=== PATIENT | female | born 1990 | race Caucasian/White ===

== ENCOUNTER → 2017-08-10 | Outpatient (CLI) | payer OTHER ==
[2017-08-10 17:40] LABS: BASO % 0.2 % (0.0-1.0); EOS # 0.1 10^3/uL (0.0-0.50); EOS % 0.9 % (0.0-3.0); HEMATOCRIT 38.5 % (36.0-47.0); HEMOGLOBIN 12.9 g/dl (12.0-15.5); IMMATURE GRANULOCYTE % 0.2 % (0-3.0); LYMPH # 2.3 10^3/uL (1.5-6.5); LYMPH % 22.7 % (24.0-44.0); MEAN CORPUSCULAR HEMOGLOBIN 30.4 pg (27.0-33.0); MEAN CORPUSCULAR HGB CONC 33.5 g/dl (32.0-36.5); MEAN CORPUSCULAR VOLUME 90.6 fl (80.0-96.0); MONO # 0.6 10^3/uL (0.0-0.8); MONO % 5.6 % (0.0-5.0); NEUTROPHILS % 70.4 % (36.0-66.0); PLATELET COUNT, AUTOMATED 265 10^3/uL (150-450); RED BLOOD COUNT 4.25 10^6/uL (4.00-5.40); RED CELL DISTRIBUTION WIDTH 12.1 % (11.5-14.5); WHITE BLOOD COUNT 9.9 10^3/uL (4.0-10.0)
[2017-08-10 20:40] LABS: CHLAMYDIA DNA AMPLIFICATION NEGATIVE (NEGATIVE); GC DNA AMPLIFICATION NEGATIVE (NEGATIVE)
[2017-08-11 11:49] LABS: RUBELLA IgG QUALITATIVE IMMUNE (IMMUNE)
[2017-08-11 11:57] LABS: HBsAg Prenatal NEGATIVE (NEGATIVE)
[2017-08-11 12:19] LABS: HIV 1&2 SCREEN CENTAUR NEGATIVE (NEGATIVE)
== END ==
LOC: M SMT 13:10
DX: Z34.81 Encounter for supervision of other normal pregnancy, first trimester (principal); Z3A.08 8 weeks gestation of pregnancy

== ENCOUNTER → 2017-09-08 | Outpatient (CLI) | payer OTHER | LOC: M LAB 12:39 | DX: Z34.81 Encounter for supervision of other normal pregnancy, first trimester (principal) ==

== ENCOUNTER → 2017-10-20 | Outpatient (CLI) | payer OTHER | LOC: M RAD 16:39 | DX: Z34.82 Encounter for supervision of other normal pregnancy, second trimester (principal); Z36.89 Encounter for other specified antenatal screening; Z3A.18 18 weeks gestation of pregnancy | CPT/HCPCS: 76811 ==

== ENCOUNTER → 2017-11-16 | Outpatient (CLI) | payer OTHER | LOC: M RAD 07:43 | DX: Z34.82 Encounter for supervision of other normal pregnancy, second trimester (principal); Z36.89 Encounter for other specified antenatal screening; Z3A.21 21 weeks gestation of pregnancy | CPT/HCPCS: 76816 ==

== ENCOUNTER → 2017-12-19 | Outpatient (CLI) | payer OTHER ==
[2017-12-19 15:10] LABS: HEMATOCRIT 34.1 % (36.0-47.0); HEMOGLOBIN 11.4 g/dl (12.0-15.5); MEAN CORPUSCULAR HEMOGLOBIN 30.2 pg (27.0-33.0); MEAN CORPUSCULAR HGB CONC 33.4 g/dl (32.0-36.5); MEAN CORPUSCULAR VOLUME 90.2 fl (80.0-96.0); PLATELET COUNT, AUTOMATED 220 10^3/uL (150-450); RED BLOOD COUNT 3.78 10^6/uL (4.00-5.40); RED CELL DISTRIBUTION WIDTH 12.6 % (11.5-14.5); WHITE BLOOD COUNT 9.5 10^3/uL (4.0-10.0)
[2017-12-19 15:29] LABS: GLUCOSE CHALLENGE TEST 1 HOUR 110 MG/DL (LESS THAN 140)
== END ==
LOC: M LAB 13:34
DX: Z34.82 Encounter for supervision of other normal pregnancy, second trimester (principal)
CPT/HCPCS: 82950

== ENCOUNTER → 2018-03-02 | Outpatient (REF) | payer OTHER | LOC: M LAB REF 13:11 | DX: O34.211 Maternal care for low transverse scar from previous cesarean delivery (principal) ==

== ENCOUNTER 2018-03-22 00:36 | Inpatient (IN) | payer OTHER ==
[2018-03-22] MEDS ORDERED: LR 1,000 ML IV (01:14)
[2018-03-22] MEDS: LACTATED RINGER'S 1000 ML IV (01:14)
[2018-03-22] MEDS ORDERED: OXYTOCIN 30 UNITS IN 0.9% NaCl 500ML IV BAG (J2590) As Ordered (01:47)
[2018-03-22 01:53] LABS: HEMATOCRIT 38.3 % (36.0-47.0); HEMOGLOBIN 12.8 g/dl (12.0-15.5); MEAN CORPUSCULAR HGB CONC 33.4 g/dl (32.0-36.5); MEAN CORPUSCULAR VOLUME 89.7 fl (80.0-96.0); PLATELET COUNT, AUTOMATED 185 10^3/uL (150-450); RED BLOOD COUNT 4.27 10^6/uL (4.00-5.40); RED CELL DISTRIBUTION WIDTH 12.4 % (11.5-14.5); WHITE BLOOD COUNT 10.2 10^3/uL (4.0-10.0)
[2018-03-22] MEDS: OXYTOCIN DRIP 30 UNITS in APPROPRIATE DILUENT 1 EA IV (02:09)
[2018-03-22] MEDS ORDERED: METHYLERGONOVINE MALEATE 0.2 MG TAB PO (02:15)
[2018-03-22] MEDS ORDERED: DOCUSATE SODIUM 100 MG CAP PO (02:15)
[2018-03-22] MEDS ORDERED: DIBUCAINE 1% OINTMENT 30GM TOP (02:15)
[2018-03-22] MEDS ORDERED: RHOGAM 300 MCG (1500 IU) INJ (J2790) IM (02:15)
[2018-03-22] MEDS ORDERED: MEASLES,MUMPS,RUBELLA VACCINE INJ (MMR-II) (90707) SC (02:15)
[2018-03-22] MEDS: IBUPROFEN 800 MG TAB PO ×3 (02:36→19:53)
[2018-03-22] MEDS: ACETAMINOPHEN 500 MG TAB PO ×2 (06:42→15:49)
[2018-03-22] MEDS: PRENATAL VITAMINS CHEWABLE TABLET PO (10:09)
[2018-03-23] MEDS: ACETAMINOPHEN 500 MG TAB PO (00:07)
[2018-03-23] MEDS: IBUPROFEN 800 MG TAB PO (07:55)
[2018-03-23] MEDS: PRENATAL VITAMINS CHEWABLE TABLET PO (07:55)
== END 2018-03-23 17:04 | disposition home or self-care (01) | DRG 560 ==
LOC: M LDI 00:36 → M OBS 03:52
PROVIDERS: Advanced Practice Midwife
PROC: 10E0XZZ Delivery of Products of Conception, External Approach (ICD-10-PCS; principal; 2018-03-22)
DX: O34.211 Maternal care for low transverse scar from previous cesarean delivery (principal); O48.0 Post-term pregnancy; Z3A.40 40 weeks gestation of pregnancy; Z37.0 Single live birth

== ENCOUNTER 2020-03-13 11:46 | Emergency (ER) | payer OTHER ==
[~2020-03-13] VITALS: Ht 149.9 cm; Wt 63.2 kg
[~2020-03-13 11:46] MED LIST: COLA100C5 PO; IBUP-1022 PO; PRENTAB9 PO; RANI15TA PO; TYLE325T5 PO
[2020-03-13] MEDS ORDERED: EXCEDRIN MIGRAINE TABLET PO STA (12:34)
[2020-03-13] MEDS ORDERED: NS 1,000 ML IV ONE ×2 (12:45→13:30)
[2020-03-13] MEDS ORDERED: METOCLOPRAMIDE INJ 10MG/2ML VIAL (J2765 PER 1) IV ONE (12:45)
[2020-03-13 13:04] LABS: BASO % 0.2 % (0.0-1.0); EOS % 0.3 % (0.0-3.0); HEMATOCRIT 41.5 % (36.0-47.0); HEMOGLOBIN 13.4 g/dl (12.0-15.5); LYMPH # 1.1 10^3/uL (1.5-5.0); LYMPH % 12.2 % (24.0-44.0); MEAN CORPUSCULAR HEMOGLOBIN 29.9 pg (27.0-33.0); MEAN CORPUSCULAR HGB CONC 32.3 g/dl (32.0-36.5); MEAN CORPUSCULAR VOLUME 92.6 fl (80.0-96.0); MONO # 0.3 10^3/uL (0.0-0.8); MONO % 3.3 % (0.0-5.0); NEUTROPHILS # 7.8 10^3/uL (1.5-8.5); NEUTROPHILS % 83.6 % (36.0-66.0); PLATELET COUNT, AUTOMATED 267 10^3/uL (150-450); RED BLOOD COUNT 4.48 10^6/uL (4.00-5.40); WHITE BLOOD COUNT 9.3 10^3/uL (4.0-10.0)
[2020-03-13 13:17] LABS: BLOOD UREA NITROGEN 8 MG/DL (7-18); CALCIUM LEVEL 9.5 MG/DL (8.5-10.1); CARBON DIOXIDE LEVEL 25 MEQ/L (21-32); CHLORIDE LEVEL 109 MEQ/L (98-107); CREATININE FOR GFR 0.84 MG/DL (0.55-1.30); GLOMERULAR FILTRATION RATE > 60.0 (>60); GLUCOSE, FASTING 100 MG/DL (70-100); POTASSIUM SERUM 3.6 MEQ/L (3.5-5.1); SODIUM LEVEL 140 MEQ/L (136-145)
[2020-03-13 13:24] LABS: HCG, SERUM QUALITATIVE NEGATIVE (NEGATIVE)
[2020-03-13] MEDS ORDERED: ISOVUE-370 76% 100ML VIAL As Ordered ONE (15:12)
--- NOTE | 2020-03-13 15:35 | REP ---
INDICATION: severe headache; r/o aneurysm. COMPARISON: None. TECHNIQUE: CT contrast dose: 100 ml of intravenous Isovue 370. Axial contrast-enhanced images were obtained from the skull base to the vertex with coronal reformations using 100 cc Isovue 370 intravenous contrast material. Maximal intensity projection and multiplanar re-formation images along with 3-D rendered imaging of the arterial vasculature. FINDINGS: The norayc-je-[id number] and visualized vertebrobasilar system appear intact and normal. Vasculature to the bilateral hemispheres appear symmetric. No obvious arteriovenous malformation or aneurysm detected. Remainder of the examination appears essentially normal. Incidental near complete opacification of the right maxillary sinus suggesting chronic sinusitis and mucosal. IMPRESSION: Normal CT angiography of the head. No obvious arteriovenous malformation or aneurysm. Vasculature to the bilateral hemispheres and posterior fossa appear symmetric. <Electronically signed by Rd Tran > 03/13/20 2008
[2020-03-13] MEDS ORDERED: AMIT-253 PO (15:50)
[2020-03-13 15:56] VITALS: BP 115/74
== END 2020-03-13 16:08 | disposition home or self-care (01) ==
LOC: M ED 11:46
DX: G97.1 Other reaction to spinal and lumbar puncture (principal); G44.209 Tension-type headache, unspecified, not intractable
CPT/HCPCS: 70496; 80048; 84703; 85025; 96361; 96374; 99284; J2765; Q9967

== ENCOUNTER → 2020-04-09 | Outpatient (CLI) | payer OTHER ==
[~2020-04-09] MED LIST changes: +AMIT-253 PO
[2020-04-11 12:07] LABS: ANTINUCLEAR ANTIBODIES DIRECT Negative (Negative)
== END ==
LOC: M LAB 10:51
PROVIDERS: ATTEND Psychiatry & Neurology Neurology
DX: R51.9 Headache, unspecified (principal)

== ENCOUNTER → 2020-07-14 | Outpatient (REF) | payer OTHER | LOC: M LAB REF 16:19 | PROVIDERS: ATTEND Nurse Practitioner Adult Health | DX: R51.9 Headache, unspecified (principal); M54.81 Occipital neuralgia ==

== ENCOUNTER → 2021-08-25 | Outpatient (REF) | payer OTHER | LOC: M LAB REF 12:24 | PROVIDERS: ATTEND Physician Assistant | DX: J02.9 Acute pharyngitis, unspecified (principal) ==